=== PATIENT | male | born 1950 | race Caucasian/White ===

== ENCOUNTER 2020-11-16 08:41 | Outpatient (RCR) | payer SELFPAY | END 2021-02-14 13:34 | disposition home or self-care (01) | LOC: WSPT 08:41 | DX: M76.62 Achilles tendinitis, left leg (principal) ==

== ENCOUNTER 2020-12-17 10:00 | Outpatient (RCR) | payer MEDICARE, BC | END 2021-01-14 | disposition home or self-care (01) | LOC: WSC | DX: M76.62 Achilles tendinitis, left leg (principal) ==

== ENCOUNTER 2024-02-22 12:53 | Day surgery (SDC) | payer MEDICARE, BC ==
[~2024-02-22] VITALS: Ht 152.4 cm; Wt 99.9 kg
[2024-02-22] VITALS (7 sets, daily range): BP systolic 145–164; BP diastolic 84–101; PULSE 67–85; TEMP 97.7
[2024-02-22] MEDS ORDERED: ASPIRIN 81M81 MG/TA2 PO (13:24)
[2024-02-22] MEDS ORDERED: VTAMINC250TA (13:26)
[2024-02-22] MEDS ORDERED: PROFERRIN ES12 MG (13:26)
[2024-02-22] MEDS ORDERED: FOLIC ACID0.4 MG PO (13:26)
[2024-02-22] MEDS ORDERED: LIPITOR 10MG10 MG PO (13:26)
[2024-02-22] MEDS ORDERED: LR 1,000 ML IV SCH (14:45)
--- NOTE | 2024-02-22 15:19 | NUR ---
See Merge report for procedural sedation/notes
[2024-02-22] MEDS ORDERED: Iohexol 300 - 100 ML VIAL IV ONE (15:34)
[2024-02-22] MEDS ORDERED: fentaNYL 50 MCG/ML 2 ML VIAL IV SCH (15:35)
[2024-02-22] MEDS ORDERED: Midazolam 2 MG/2 ML VIAL IV SCH (15:35)
--- NOTE | 2024-02-22 15:48 | NUR ---
Pt back to [facility] - bedside handoff performed with KYM Brand: vitals initiated and stable, rt groin access site assessed and stable - dressing CDI. Call light in reach, at bedside.
--- NOTE | 2024-02-22 17:24 | NUR ---
Pt ambulated with a steady gait to [facility] accompanied by . IV started. Meds and HX reviewed with the pt. Consent for the procedure signed. Once the procedure was complete the pt came back to [facility] to recover. The groin site was assessed, clean, dry, and intact. Pt was offered something to eat and drink. Accpeted a diet pepsi and muffin. Pt was bedrest for 1 hr. During the time the site remained clean, dry, and intact. Discharge education and information discussed with the pt. No questions at that time. IV dc'd and wrapped with coban. Pt exited the unit by wheelchair to wifes car, pt was accompanied by this nurse.
== END 2024-02-22 17:05 | disposition home or self-care (01) ==
LOC: COL.CAR 12:53
DX: I82.501 Chronic embolism and thrombosis of unspecified deep veins of right lower extremity (principal); M17.0 Bilateral primary osteoarthritis of knee
CPT/HCPCS: C1880; C1894; J1644; J2250; J3010; J7120; Q9967